=== PATIENT | male | born 1990 | race Caucasian/White ===

== ENCOUNTER 2016-10-24 14:38 | Emergency (ER) | payer SELFPAY ==
[~2016-10-24] VITALS: Ht 185.4 cm; Wt 90.7 kg
[~2016-10-24 14:38] MED LIST: ACHD5005 PO; CEPH500C PO; CLIN300C3 PO; NAPR-243 PO
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
[2016-10-24] MEDS ORDERED: Flexeril (16:34)
[2016-10-24] MEDS ORDERED: IBUP-1773 PO (16:34)
[2016-10-24 16:38] VITALS: BP 159/101
--- OUTSIDE RECORDS SUMMARY | 2016-10-28 07:45 | XMS REPORT ---
Author Author BELINDA NEVAREZ Organization [employer] Address Unknown Phone Unavailable Care Team Providers Care Tool Filer Name Role Phone BELINDA NEVAREZ CP Unavailable Allergies, Adverse Reactions, Alerts Substance Reaction Event Type Penicillin V Potassium hives Drug Allergy Problems Problem Type Condition Code Onset Dates Condition Status Assessment Allergic rhinitis J30.9 Active Problem Unspecified disorder of skin and subcutaneous tissue 709.9 Active Assessment Hypertension I10 Active Problem Allergic rhinitis J30.9 Active Problem Other, multiple, and unspecified sites, insect bite, nonvenomous, infected 919.5 Active Problem Hypertension I10 Active Problem Encounter for long-term (current) use of other medications V58.69 Active Problem Enlargement of lymph nodes 785.6 Active Problem Periapical abscess without sinus 522.5 Active Problem Pain in joint, shoulder region 719.41 Active Medications Medication Code System Code Instructions Start Date End Date Status Dosage BusPIRone HCl [facility] [address]-97 10 MG Orally Twice a day July 16, 2015 1 tablet Cetirizine HCl [facility] [address]-01 10 MG Orally Once a day August 13, 2015 November 11, 2015 1 tablet as needed Lisinopril [facility] [address]-88 5 MG Orally Once a day August 13, 2015 1 tablet Procedures Procedure Coding System Code Date Office Visit, Est Pt., Level 3 CPT-4 45704 August 13, 2015 Vital Signs Date/Time: August 13, 2015 Temperature 99.0 F Weight 197.8 lbs Height 71 in BMI 27.58 Index Blood Pressure Diastolic 100 mmHg Blood Pressure Systolic 140 mmHg Cardiac Monitoring Heart Rate 64 bpm Results No Known Results Summary Purpose [employer] Submission
--- OUTSIDE RECORDS SUMMARY | 2016-10-28 07:45 | XMS REPORT ---
Author Author ESDRAS CAMEJO Organization [employer] Address Unknown Phone Unavailable Care Team Providers Care Orthotic/Prosthetic Clinician Name Role Phone ESDRAS CAMEJO CP Unavailable Allergies, Adverse Reactions, Alerts Substance Reaction Event Type Penicillin V Potassium Info Not Available Drug Allergy Problems Problem Type Condition Code Onset Dates Condition Status Problem Periapical abscess without sinus 522.5 Active Problem Pain in joint, shoulder region 719.41 Active Problem Other, multiple, and unspecified sites, insect bite, nonvenomous, infected 919.5 Active Problem Unspecified disorder of skin and subcutaneous tissue 709.9 Active Assessment Dental examination V72.2 Active Problem Encounter for long-term (current) use of other medications V58.69 Active Problem Enlargement of lymph nodes 785.6 Active Medications No Known Medications Procedures Procedure Coding System Code Date AMALGAM-FOUR/MORE SURF PRIM/PERM CPT-4 D2161 Jan 10, 2015 Vital Signs Date/Time: Jan 10, 2015 Blood Pressure Diastolic 87 mmHg Blood Pressure Systolic 132 mmHg Results No Known Results Summary Purpose [employer] Submission
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
== END 2016-10-24 16:38 | disposition home or self-care (01) ==
LOC: EDUNIT# 14:38 → ER 14:41
DX: S23.9XXA Sprain of unspecified parts of thorax, initial encounter (principal); F32.9 Major depressive disorder, single episode, unspecified; F41.9 Anxiety disorder, unspecified; Z87.891 Personal history of nicotine dependence; W01.0XXA Fall on same level from slipping, tripping and stumbling without subsequent striking against object, initial encounter; Y92.007 Garden or yard of unspecified non-institutional (private) residence as the place of occurrence of the external cause
CPT/HCPCS: 72128; 99281

== ENCOUNTER 2018-04-05 14:58 | Emergency (ER) | payer MEDICAID, OTHER ==
[~2018-04-05] VITALS: Ht 172.7 cm; Wt 90.7 kg
[~2018-04-05 14:58] MED LIST changes: +Flexeril; +IBUP-1773 PO
[2018-04-05] MEDS ORDERED: NS IV 1000 ML 1,000 ML IV ONE (15:14)
[2018-04-05] MEDS ORDERED: LORazepam INJ 2 MG/ML (ATIVAN) VIAL IVP PRN (15:15)
[2018-04-05 15:20] LABS: BASOPHILS % (AUTO) 0 % (0-10); EOSINOPHILS % (AUTO) 0 % (0-10); HEMATOCRIT 44 % (40-54); HEMOGLOBIN 15.5 G/DL (13.3-17.7); LYMPHOCYTES # (AUTO) 3.9 X 10^3 (1.0-4.0); LYMPHOCYTES % (AUTO) 38 % (12-44); MEAN CORPUSCULAR HEMOGLOBIN 32 PG (25-34); MEAN CORPUSCULAR HGB CONC 36 G/DL (32-36); MEAN CORPUSCULAR VOLUME 90 FL (80-99); MEAN PLATELET VOLUME 9.4 FL (7.4-10.4); MONOCYTES % (AUTO) 10 % (0-12); NEUTROPHILS # (AUTO) 5.1 X 10^3 (1.8-7.8); NEUTROPHILS % (AUTO) 51 % (42-75); PLATELET COUNT 261 10^3/uL (130-400); RED BLOOD COUNT 4.85 10^6/uL (4.35-5.85); RED CELL DISTRIBUTION WIDTH 13.1 % (10.0-14.5)
[2018-04-05 15:38] LABS: ALANINE AMINOTRANSFERASE 210 U/L (0-55); ALBUMIN 5.2 GM/DL (3.2-4.5); ALKALINE PHOSPHATASE 68 U/L (40-136); BILIRUBIN,TOTAL 0.8 MG/DL (0.1-1.0); BUN/CREATININE RATIO 8; CALCIUM 10.4 MG/DL (8.5-10.1); CARBON DIOXIDE 17 MMOL/L (21-32); CHLORIDE 101 MMOL/L (98-107); CREATININE SERUM 1.15 MG/DL (0.60-1.30); GFR ESTIMATED > 60; GLUCOSE 105 MG/DL (70-105); POTASSIUM 3.1 MMOL/L (3.6-5.0); SODIUM 138 MMOL/L (135-145); TOTAL PROTEIN 8.1 GM/DL (6.4-8.2)
[2018-04-05] MEDS ORDERED: FAMOTIDINE 20MG/2ML IV (PEPCID) IV STA (15:59)
[2018-04-05] MEDS ORDERED: ANTACID SUSP 30 ML UDC (MYLANTA) PO ONE (16:00)
[2018-04-05] MEDS ORDERED: LIDOCAINE 2% VISCOUS 15 ML UDC PO ONE (16:00)
--- NOTE | 2018-04-05 17:03 | ED General ---
General Chief Complaint: Substance Abuse Stated Complaint: STROKE Nursing Triage Note: pt experimented with Methamphetamine last night while drinking. Pt states this is the first time. pt states that he started not feeling well et SOB about 2 couple hours ago et while at the store he got really dizzy, had muscle spasms et contractions, et then he told his fiance to go to the hospital Nursing Sepsis Screen: No Definite Risk Source of Information: Patient Exam Limitations: No Limitations History of Present Illness Date Seen by Provider: Apr 05, 2018 Time Seen by Provider: 15:09 Initial Comments Here by POV with report of concerns of stroke. Patient was rapidly breathing and had cramping in his hands and perioral anesthesia. States she was hyperventilating. Reports this happened previously 1 time after methamphetamine experimentation. Admits to using methamphetamine last night. States he does not use chronically and is very concerned about this and it got him nervous. Denies nausea or vomiting. Able to move all extremities otherwise. Timing/Duration: 1-3 Hours Severity: Moderate, Severe Modifying Factors: improves with Rest Associated Systoms: No Chest Pain, No Cough, No Fever/Chills, No Nausea/ Vomiting; Shortness of Air; No Weakness Allergies and Home Medications Allergies Coded Allergies: Penicillins (Verified Allergy, 03/10/12) Home Medications Ibuprofen 600 Mg Tablet, 600 MG PO Q6H PRN for PAIN Prescribed by: CHUCK THOMPSON on 10/24/16 1634 [Flexeril] , 10 MG twice a day Prescribed by: CHUCK THOMPSON on 10/24/16 1634 Patient Home Medication List Home Medication List Reviewed: Yes Review of Systems Review of Systems Constitutional: see HPI; No chills, No fever EENTM: see HPI; No blurred vision Respiratory: No cough; short of breath, other (hyperventilation) Cardiovascular: No chest pain; palpitations Gastrointestinal: No abdominal pain, No nausea, No vomiting Genitourinary: no symptoms reported Musculoskeletal: muscle pain, muscle stiffness; No neck pain Skin: no symptoms reported Psychiatric/Neurological: See HPI, Anxiety, Emotional Problems All Other Systems Reviewed Negative Unless Noted: Yes Past Psimopg-Gnifef-Esbjzi Hx Past Med/Social Hx: Reviewed Nursing Past Med/Soc Hx Patient Social History Alcohol Use: Regular Use Alcohol Beverage of Choice: Beer Recreational Drug Use: Yes Drug of Choice: methamphetamine Recent Foreign Travel: No Contact w/Someone Who Travel: No Recent Infectious Disease Expo: No Recent Hopitalizations: No Physical Abuse: No Sexual Abuse: No Mistreated: No Fear: No Seasonal Allergies Seasonal Allergies: No Past Medical History Surgeries: No Respiratory: No Cardiac: Yes Hypertension Neurological: No Reproductive Disorders: No Sexually Transmitted Disease: No Genitourinary: No Gastrointestinal: No Musculoskeletal: No Endocrine: No HEENT: No Cancer: No Psychosocial: Yes Anxiety Integumentary: No Blood Disorders: No Family Medical History Reviewed Nursing Family Hx Physical Exam Vital Signs Vital Signs - First Documented 04/05/18 15:00 Temp 98.8 Pulse 120 Resp 26 B/P (MAP) 158/123 (135) Pulse Ox 100 O2 Delivery Room Air Capillary Refill : Less Than 3 Seconds Height, Weight, BMI Height: 5'8.00" Weight: 200lbs. oz. 90.512480iz; 26.44 BMI Method:Estimated General Appearance: WD/WN, Anxious HEENT: PERRL/EOMI, Pharynx Normal Neck: Non Tender, Supple Respiratory: Lungs Clear, Normal Breath Sounds Cardiovascular: No Murmur, Tachycardia Gastrointestinal: No Organomegaly, No Pulsatile Mass, Non Tender, Soft Back: Normal Inspection, No CVA Tenderness, No Vertebral Tenderness Extremity: No Inflammation; Other (hand cramping with carpopedal spasms) Neurologic/Psychiatric: Alert, Oriented x3 Skin: Normal Color, Warm/Dry Progress/Results/Core Measures Suspected Sepsis Recent Fever Within 48 Hours: No Infection Criteria Present: None New/Unexplained Altered Menta: No Sepsis Screen: No Definite Risk SIRS Temperature:98.8 Pulse: 120 Respiratory Rate: 26 Laboratory Tests 04/05/18 15:13: White Blood Count 10.0 Blood Pressure 158 /123 Mean: 135 Laboratory Tests 04/05/18 15:13: Creatinine 1.15, Platelet Count 261, Total Bilirubin 0.8 Results/Orders Lab Results Laboratory Tests Test 04/05/18 15:13 Range/Units White Blood Count 10.0 4.3-11.0 10^3/uL Red Blood Count 4.85 4.35-5.85 10^6/uL Hemoglobin 15.5 13.3-17.7 G/DL Hematocrit 44 40-54 % Mean Corpuscular Volume 90 80-99 FL Mean Corpuscular Hemoglobin 32 25-34 PG Mean Corpuscular Hemoglobin Concent 36 32-36 G/DL Red Cell Distribution Width 13.1 10.0-14.5 % Platelet Count 261 130-400 10^3/uL Mean Platelet Volume 9.4 7.4-10.4 FL Neutrophils (%) (Auto) 51 42-75 % Lymphocytes (%) (Auto) 38 12-44 % Monocytes (%) (Auto) 10 0-12 % Eosinophils (%) (Auto) 0 0-10 % Basophils (%) (Auto) 0 0-10 % Neutrophils # (Auto) 5.1 1.8-7.8 X 10^3 Lymphocytes # (Auto) 3.9 1.0-4.0 X 10^3 Monocytes # (Auto) 1.0 0.0-1.0 X 10^3 Eosinophils # (Auto) 0.0 0.0-0.3 10^3/uL Basophils # (Auto) 0.0 0.0-0.1 10^3/uL Sodium Level 138 135-145 MMOL/L Potassium Level 3.1 L 3.6-5.0 MMOL/L Chloride Level 101 98-107 MMOL/L Carbon Dioxide Level 17 L 21-32 MMOL/L Anion Gap 20 H 5-14 MMOL/L Blood Urea Nitrogen 9 7-18 MG/DL Creatinine 1.15 0.60-1.30 MG/DL Estimat Glomerular Filtration Rate > 60 BUN/Creatinine Ratio 8 Glucose Level 105 70-105 MG/DL Calcium Level 10.4 H 8.5-10.1 MG/DL Corrected Calcium 8.5-10.1 MG/DL Total Bilirubin 0.8 0.1-1.0 MG/DL Aspartate Amino Transf (AST/SGOT) 97 H 5-34 U/L Alanine Aminotransferase (ALT/SGPT) 210 H 0-55 U/L Alkaline Phosphatase 68 40-136 U/L Total Protein 8.1 6.4-8.2 GM/DL Albumin 5.2 H 3.2-4.5 GM/DL My Orders Orders - MANUELA ALLEN MD Cbc With Automated Diff (04/05/18 15:14) Comprehensive Metabolic Panel (04/05/18 15:14) Saline Lock/Iv-Start (04/05/18 15:14) Ns Iv 1000 Ml (Sodium Chloride 0.9%) (04/05/18 15:14) Lorazepam Injection (Ativan Injection) (04/05/18 15:15) Ekg Tracing (04/05/18 15:14) Lidocaine 2% Viscous 15 Ml (Xylocaine Vi (04/05/18 16:00) Antacid Suspension (Mylanta Suspension (04/05/18 16:00) Famotidine Injection (Pepcid Injection) (04/05/18 15:59) Medications Given in ED Current Medications Medications Dose Ordered Sig/Desmond Route Start Time Stop Time Status Last Admin Dose Admin Al Hydrox/Mg Hydrox/Simethicone 30 ml ONCE ONCE PO 04/05/18 16:00 04/05/18 16:01 DC 04/05/18 16:07 30 ML Lidocaine HCl 15 ml ONCE ONCE PO 04/05/18 16:00 04/05/18 16:01 DC 04/05/18 16:07 15 ML Lorazepam 1 mg ONCE PRN IVP 04/05/18 15:15 04/05/18 15:38 1 MG Sodium Chloride 1,000 ml @ 0 mls/hr Q0M ONCE IV 04/05/18 15:14 04/05/18 15:16 DC 04/05/18 15:38 1,000 MLS/HR Vital Signs/I&O 04/05/18 15:00 Temp 98.8 Pulse 120 Resp 26 B/P (MAP) 158/123 (135) Pulse Ox 100 O2 Delivery Room Air Capillary Refill : Less Than 3 Seconds Blood Pressure Mean: 135 Progress Note : Progress Note Seen and evaluated. IV, labs, normal saline 1 L bolus and Ativan 1 mg IV. EKG done. Monitor patient. While in 630: Pepcid 20 mg IV injection ordered. Patient doing much better. 1702. Heart rate now 89 with O2 sat 90 percent on room air. Patient is unable use his phone and doing much better. We did discuss at length avoidance of stimulants including methamphetamine. Discharged home with return precautions. Patient verbalize understanding instructions and agreement with plan. 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 Decision time for Depature: 17:03 Referrals: [facility] (PCP) Primary Care Physician ADRIENNE BLACKMAN (Family) Primary Care Physician Patient Instructions: ALCOHOL AND SUBSTANCE ABUSE, Adverse Drug Reactions, Adult (DC) Add. Discharge Instructions: All discharge instructions reviewed with patient and/or family. Voiced understanding. Avoid stimulants. Drink plenty of fluids. Follow-up with your Dr. in a few days for recheck. Return for worse pain, fever, vomiting, weakness, breathing problems or other concerns as needed. MANUELA ALLEN MD Apr 05, 2018 17:03
[2018-04-05 17:13] VITALS: BP 163/105
== END 2018-04-05 17:12 | disposition home or self-care (01) ==
LOC: EDUNIT# 14:58 → ER 15:06
DX: R20.0 Anesthesia of skin (principal); T43.605A Adverse effect of unspecified psychostimulants, initial encounter; I10 Essential (primary) hypertension; F41.9 Anxiety disorder, unspecified; F15.10 Other stimulant abuse, uncomplicated; Z88.0 Allergy status to penicillin
CPT/HCPCS: 36415; 80053; 85025; 93005

== ENCOUNTER 2018-04-06 04:17 | Emergency (ER) | payer MEDICAID ==
[~2018-04-06] VITALS: Ht 182.9 cm; Wt 102.1 kg
[2018-04-06] MEDS ORDERED: NS IV 1000 ML 1,000 ML IV ONE ×2 (04:36→05:33)
[2018-04-06 04:44] LABS: BASOPHILS % (AUTO) 0 % (0-10); EOSINOPHILS # (AUTO) 0.1 10^3/uL (0.0-0.3); EOSINOPHILS % (AUTO) 1 % (0-10); HEMATOCRIT 43 % (40-54); HEMOGLOBIN 15.4 G/DL (13.3-17.7); LYMPHOCYTES # (AUTO) 3.2 X 10^3 (1.0-4.0); LYMPHOCYTES % (AUTO) 45 % (12-44); MEAN CORPUSCULAR HEMOGLOBIN 32 PG (25-34); MEAN CORPUSCULAR HGB CONC 36 G/DL (32-36); MEAN CORPUSCULAR VOLUME 89 FL (80-99); MONOCYTES # (AUTO) 0.9 X 10^3 (0.0-1.0); MONOCYTES % (AUTO) 12 % (0-12); NEUTROPHILS % (AUTO) 42 % (42-75); PLATELET COUNT 277 10^3/uL (130-400); RED BLOOD COUNT 4.77 10^6/uL (4.35-5.85); RED CELL DISTRIBUTION WIDTH 13.1 % (10.0-14.5); WHITE BLOOD COUNT 7.1 10^3/uL (4.3-11.0)
[2018-04-06 04:56] LABS: PROTHROMBIN TIME PATIENT 13.5 SEC (12.2-14.7)
[2018-04-06 05:04] LABS: ALANINE AMINOTRANSFERASE 191 U/L (0-55); ALBUMIN 4.8 GM/DL (3.2-4.5); ALKALINE PHOSPHATASE 61 U/L (40-136); BUN/CREATININE RATIO 7; CARBON DIOXIDE 17 MMOL/L (21-32); CHLORIDE 107 MMOL/L (98-107); CREATINE KINASE 953 U/L (30-200); CREATININE SERUM 1.16 MG/DL (0.60-1.30); GFR ESTIMATED > 60; GLUCOSE 110 MG/DL (70-105); MAGNESIUM 1.9 MG/DL (1.8-2.4); POTASSIUM 3.4 MMOL/L (3.6-5.0); SODIUM 140 MMOL/L (135-145); TOTAL PROTEIN 7.6 GM/DL (6.4-8.2)
[2018-04-06 05:11] LABS: MYOGLOBIN SERUM 97.6 NG/ML (10.0-92.0)
[2018-04-06] MEDS ORDERED: LACTATED RINGERS 1,000 ML IV ONE (05:33)
--- NOTE | 2018-04-06 05:46 | ED Chest Pain ---
General Chief Complaint: Chest Pain Stated Complaint: POSSIBLE ALLERGIC REACTION Nursing Triage Note: Pt took a pill at [facility] Thursday that was supposed to be a OTC- dietary pill. Yesterday morning he started to have dizziness and chest pain that radiates down left arm and right leg. Pt stated he was seen yesterday for this issue and hyperventilating. Pt thought yesterday that he was having a heart attack or a stroke. Pain is a dull pain. Nursing Sepsis Screen: No Definite Risk Source: patient, old records Exam Limitations: no limitations (JACOB LEWIS MD) History of Present Illness Date Seen by Provider: Apr 06, 2018 Time Seen by Provider: 04:25 Initial Comments Patient presents to the emergency room complaining of chest discomfort, generalized myalgia, and shortness of air. He is noted to be tachycardic. He admits to using methamphetamines at a [facility] 2 days ago. He was seen yesterday by Dr. Valerio. See his note for details on that visit. He denies any further use of drugs or alcohol since 2 nights ago. Patient appears dry on exam. (JACOB LEWIS MD) Allergies and Home Medications Allergies Coded Allergies: Penicillins (Verified Allergy, 03/10/12) Home Medications Ibuprofen 600 Mg Tablet, 600 MG PO Q6H PRN for PAIN Prescribed by: CHUCK THOMPSON on 10/24/16 1634 [Flexeril] , 10 MG twice a day Prescribed by: CHUCK THOMPSON on 10/24/16 1634 Patient Home Medication List Home Medication List Reviewed: Yes (JACOB LEWIS MD) Review of Systems Review of Systems Constitutional: see HPI EENTM: See HPI Respiratory: See HPI Cardiovascular: See HPI Gastrointestinal: No Symptoms Reported Genitourinary: No Symptoms Reported Musculoskeletal: see HPI Skin: no symptoms reported Psychiatric/Neurological: No Symptoms Reported Endocrine: No Symptoms Reported Hematologic/Lymphatic: No Symptoms Reported (JACOB LEWIS MD) Past Coemppv-Yvzvne-Wrkjsi Hx Past Med/Social Hx: Reviewed Nursing Past Med/Soc Hx (JACOB LEWIS MD) Patient Social History Alcohol Use: Rarely Uses Number of Drinks Today: 3 Alcohol Beverage of Choice: Beer Recreational Drug Use: No (took pill at [facility] 04/04/18 that was supposed to be dietary pill otc) Drug of Choice: methamphetamine Smoking Status: Former Smoker Type Used: Cigarettes Former Smoker, Quit: Mar 20, 2017 Recent Foreign Travel: No Contact w/Someone Who Travel: No Recent Infectious Disease Expo: No Recent Hopitalizations: No Physical Abuse: No Sexual Abuse: No Mistreated: No Fear: No (JACOB LEWIS MD) Seasonal Allergies Seasonal Allergies: No (JACOB LEWIS MD) Past Medical History Surgeries: No Respiratory: No Cardiac: Yes Hypertension Neurological: No Reproductive Disorders: No Sexually Transmitted Disease: No Genitourinary: No Gastrointestinal: No Musculoskeletal: No Endocrine: No HEENT: No Cancer: No Psychosocial: Yes Anxiety Integumentary: No Blood Disorders: No (JACOB LEWIS MD) Physical Exam Vital Signs Vital Signs - First Documented (DAMI IBRAHIM) Vital Signs Capillary Refill : Less Than 3 Seconds (JACOB LEWIS MD) Height, Weight, BMI Height: 6'0" Weight: 225lbs. oz. 102.106896eb; 26.44 BMI Method:Stated General Appearance: WD/WN, Anxious, Mild Distress HEENT: PERRL/EOMI, Normal ENT Inspection, Other (Oropharynx dry) Neck: Normal Inspection Respiratory: Lungs Clear, Normal Breath Sounds, No Accessory Muscle Use, No Respiratory Distress Cardiovascular: No Edema, No Murmur, Tachycardia Gastrointestinal: Non Tender, Soft Extremity: Normal Inspection, No Pedal Edema Neurologic/Psychiatric: Alert, Oriented x3, No Motor/Sensory Deficits, manufacturing analyst II- XII Norm as Tested, Other (Anxious) Skin: Normal Color, Warm/Dry (JACOB LEWIS MD) Progress/Results/Core Measures Results/Orders Lab Results Laboratory Tests Test 04/06/18 04:35 Range/Units White Blood Count 7.1 4.3-11.0 10^3/uL Red Blood Count 4.77 4.35-5.85 10^6/uL Hemoglobin 15.4 13.3-17.7 G/DL Hematocrit 43 40-54 % Mean Corpuscular Volume 89 80-99 FL Mean Corpuscular Hemoglobin 32 25-34 PG Mean Corpuscular Hemoglobin Concent 36 32-36 G/DL Red Cell Distribution Width 13.1 10.0-14.5 % Platelet Count 277 130-400 10^3/uL Mean Platelet Volume 9.0 7.4-10.4 FL Neutrophils (%) (Auto) 42 42-75 % Lymphocytes (%) (Auto) 45 H 12-44 % Monocytes (%) (Auto) 12 0-12 % Eosinophils (%) (Auto) 1 0-10 % Basophils (%) (Auto) 0 0-10 % Neutrophils # (Auto) 3.0 1.8-7.8 X 10^3 Lymphocytes # (Auto) 3.2 1.0-4.0 X 10^3 Monocytes # (Auto) 0.9 0.0-1.0 X 10^3 Eosinophils # (Auto) 0.1 0.0-0.3 10^3/uL Basophils # (Auto) 0.0 0.0-0.1 10^3/uL Prothrombin Time 13.5 12.2-14.7 SEC INR Comment 1.0 0.8-1.4 Activated Partial Thromboplast Time 28 24-35 SEC Sodium Level 140 135-145 MMOL/L Potassium Level 3.4 L 3.6-5.0 MMOL/L Chloride Level 107 98-107 MMOL/L Carbon Dioxide Level 17 L 21-32 MMOL/L Anion Gap 16 H 5-14 MMOL/L Blood Urea Nitrogen 8 7-18 MG/DL Creatinine 1.16 0.60-1.30 MG/DL Estimat Glomerular Filtration Rate > 60 BUN/Creatinine Ratio 7 Glucose Level 110 H 70-105 MG/DL Calcium Level 10.0 8.5-10.1 MG/DL Corrected Calcium 8.5-10.1 MG/DL Magnesium Level 1.9 1.8-2.4 MG/DL Total Bilirubin 1.0 0.1-1.0 MG/DL Aspartate Amino Transf (AST/SGOT) 97 H 5-34 U/L Alanine Aminotransferase (ALT/SGPT) 191 H 0-55 U/L Alkaline Phosphatase 61 40-136 U/L Total Creatine Kinase 953 H 30-200 U/L Myoglobin 97.6 H 10.0-92.0 NG/ML Troponin I < 0.30 <0.30 NG/ML Total Protein 7.6 6.4-8.2 GM/DL Albumin 4.8 H 3.2-4.5 GM/DL TSH [place] Testing 2.57 0.35-4.94 UIU/ML (DAMI IBRAHIM) Medications Given in ED Current Medications Medications Dose Ordered Sig/Desmond Route Start Time Stop Time Status Last Admin Dose Admin Lactated Ringer's 1,000 ml @ 0 mls/hr Q0M ONCE IV 04/06/18 05:33 04/06/18 05:34 DC 04/06/18 06:13 1,000 MLS/HR Sodium Chloride 1,000 ml @ 0 mls/hr Q0M ONCE IV 04/06/18 04:36 04/06/18 04:40 DC 04/06/18 05:07 1,000 MLS/HR Sodium Chloride 1,000 ml @ 0 mls/hr Q0M ONCE IV 04/06/18 05:33 04/06/18 05:34 DC 04/06/18 05:43 1,000 MLS/HR (DAMI IBRAHIM) Vital Signs/I&O 04/06/18 04/06/18 04/06/18 04:25 04:25 04:25 Temp 97.3 Pulse 120 Resp 22 B/P (MAP) 166/117 (133) Pulse Ox 99 99 O2 Delivery Room Air Room Air Room Air (DAMI IBRAHIM) Blood Pressure Mean: 133 Progress Progress Note : Progress Note Patient was hydrated with IV fluids. Labs were obtained. He was found to have rhabdomyolysis, likely methamphetamine induced. An additional 2 L were administered for a total fluid bolus of [address] Nobles with [facility] to ensure the patient could get follow-up for repeat labs. He was also given a prescription for lab work. Patient was dismissed home in improved condition. Tachycardia resolved. (JACOB LEWIS MD) Initial ECG Impression Date: Apr 06, 2018 Initial ECG Impression Time: 04:38 Initial ECG Rate: 99 Initial ECG Rhythm: Normal Sinus Comment Normal sinus rhythm. No ST elevation or depression. No abnormal intervals or axis deviation. (JACOB LEWIS MD) Diagnostic Imaging Diagonstic Imaging: Xray Plain Films/CT/US/NM/MRI: chest Comments [facility], [place] NAME: NAYA RENTERIA [facility] REC#: [id number] PT STATUS: REG ER : 1990 PHYSICIAN: JACOB LEWIS MD ADMIT DATE: 04/06/18/ER Draft Date of Exam:04/06/18 CHEST 1 VIEW, AP/PA ONLY Indication: Allergic reaction. Findings: The lungs are clear. The heart size and vascularity are normal. There is no effusion or pneumothorax. Impression: No acute-appearing abnormality. Dictated on workstation # [id number] Dict: 04/06/18817 Trans: 04/06/18820 CVB [id number] Interpreted by: JOSE MONTEMAYOR Electronically signed by: Reviewed: Reviewed by Me (DAMI IBRAHIM) Departure Impression Primary Impression: Rhabdomyolysis Qualified Codes: M62.82 - Rhabdomyolysis Additional Impressions: Chest pain Qualified Codes: R07.9 - Chest pain, unspecified Methamphetamine abuse Disposition: HOME, SELF-CARE Condition: Improved Departure-Patient Inst. Decision time for Depature: 05:46 (JACOB LEWIS MD) Referrals: [facility] [place] Primary Care Physician ADRIENNE BLACKMAN (Family) Primary Care Physician Patient Instructions: Rhabdomyolysis Add. Discharge Instructions: Drink plenty of clear liquids. Follow-up at [facility] as soon as possible. Obtain repeat labs in the clinic as ordered on the prescription. Return to care if you have worsening symptoms. Avoid all psychogenic substances such as methamphetamines or marijuana. Consider seeking assistance at the drug and alcohol treatment center at [facility]. All discharge instructions reviewed with patient and/or family. Voiced understanding. JACOB LEWIS MD Apr 06, 2018 05:46 DAMI IBRAHIM Apr 06, 2018 08:51
--- NOTE | 2018-04-06 08:21 | Diagnostic Imaging Report ---
Indication: Allergic reaction. Findings: The lungs are clear. The heart size and vascularity are normal. There is no effusion or pneumothorax. Impression: No acute-appearing abnormality. Dictated by: Dictated on workstation # [id number]
[2018-04-06 08:59] VITALS: BP 161/112
== END 2018-04-06 08:59 | disposition home or self-care (01) ==
LOC: EDUNIT# 04:17 → ER 04:18
DX: M62.82 Rhabdomyolysis (principal); R07.89 Other chest pain; F15.10 Other stimulant abuse, uncomplicated; I10 Essential (primary) hypertension; F41.9 Anxiety disorder, unspecified; Z87.891 Personal history of nicotine dependence; Z88.0 Allergy status to penicillin
CPT/HCPCS: 36415; 71045; 80053; 82550; 83735; 83874; 84443; 84484; 85025; 85610; 85730; 93005; 93041

== ENCOUNTER 2018-08-25 23:40 | Emergency (ER) | payer SELFPAY ==
[~2018-08-25] VITALS: Ht 182.9 cm; Wt 104.3 kg
[2018-08-26] MEDS ORDERED: LISI-556 (00:02)
[2018-08-26] MEDS ORDERED: BENZ100C18 PO (00:42)
[2018-08-26] MEDS ORDERED: DOXY100C42 PO (00:42)
[2018-08-26] MEDS ORDERED: GUAI1TBM19 PO (00:42)
[2018-08-26] MEDS ORDERED: METH4TAB PO (00:42)
--- NOTE | 2018-08-26 00:42 | ED Cough/URI ---
General Chief Complaint: General Problems/Pain Stated Complaint: SORE THROAT,VOMITING,FEVER,CONGESTION,FREEZING,NUM Nursing Triage Note: INTERMITTANT FEVER/CHILLS, SORE THROAT, CHEST CONGESTION, VOMITTING X4-5 DAYS. Sepsis Screen: No Definite Risk Source: patient History of Present Illness Date Seen by Provider: August 25, 2018 Time Seen by Provider: 23:55 Initial Comments PT ARRIVES VIA POV FROM HOME PT STATES HAS HAD "FLU LIKE SYMPTOMS FOR A COUPLE OF WEEKS" STATES HE HAD A SORE THROAT FOR 4-5 DAYS, BUT IS GRADUALLY GETTING BETTER THE LAST 3-4 DAYS HAS COUGH AND CONGESTION AND COUGHS UNTIL HE VOMITS, AND HIS HANDS AND LEGS WILL GET TINGLY WHEN COUGHS/GAGS/VOMITS C/O CHILLS, BUT NO KNOWN FEVER NO CHEST PAIN NO SHORTNESS OF BREATH HAS NOT TAKEN ANYTHING FOR SYMPTOMS HAS NOT SOUGHT CARE UNTIL TONIGHT SYMPTOMS NO DIFFERENT TONIGHT NO KNOWN SICK CONTACTS PT DRINKS A PINT OF HARD LIQUOR A DAY, RECENTLY QUIT SMOKING 1 PPD, AND SMOKES METH AND THC PCP: LASHAWN-ERVIN, JOVANNI BLACKMAN Allergies and Home Medications Allergies Coded Allergies: Penicillins (Verified Allergy, 03/10/12) Home Medications Benzonatate 100 Mg Capsule, 1-2 TAB PO TID Prescribed by: MIRELA ALCALA on 08/26/1841 Doxycycline Monohydrate 100 Mg Capsule, 100 MG PO BID Prescribed by: MIRELA ALCALA on 08/26/1841 Guaifenesin/Dextromethorphan 1 Each Tbmp.12hr, 1 EACH PO BID Prescribed by: MIRELA ALCALA on 08/26/1841 Methylprednisolone 4 Mg Tab.ds.pk, 4 MG PO UD Prescribed by: MIRELA ALCALA on 08/26/1841 Patient Home Medication List Home Medication List Reviewed: Yes Review of Systems Review of Systems Constitutional: chills EENTM: see HPI, nose congestion, throat pain; No ear pain Respiratory: see HPI, cough, phlegm; No short of breath, No wheezing Cardiovascular: no symptoms reported Gastrointestinal: see HPI, vomiting Genitourinary: no symptoms reported Musculoskeletal: no symptoms reported Skin: no symptoms reported Psychiatric/Neurological: No Symptoms Reported Hematologic/Lymphatic: No Symptoms Reported Immunological/Allergic: no symptoms reported Past Wdylmrz-Mthnrw-Ltmrpl Hx Patient Social History Alcohol Use: Regular Use (DRINKS AT LEAST A PINT OF HARD LIQUOR A DAY) Number of Drinks Today: AA Alcohol Beverage of Choice: Beer, Cheap Liquor Recreational Drug Use: Yes (SMOKES METH AND THC; ALSO HX OF OPIATES AND BENZO' S USE/ABUSE) Drug of Choice: SMOKES METH AND THC, ALSO HX OF OPIATES AND BENZO'S USE/ABUSE Smoking Status: Former Smoker (1 PPD) Type Used: Cigarettes Former Smoker, Quit: Mar 20, 2017 2nd Hand Smoke Exposure: No Recent Foreign Travel: No Contact w/Someone Who Travel: No Recent Infectious Disease Expo: No Recent Hopitalizations: No Immunizations Up To Date Tetanus Booster (TDap): Unknown Seasonal Allergies Seasonal Allergies: No Past Medical History Surgeries: No Respiratory: No Cardiac: Yes Hypertension Neurological: No Reproductive Disorders: No Sexually Transmitted Disease: No Genitourinary: No Gastrointestinal: No Musculoskeletal: No (MILD RHABDOMYOLYSIS DUE TO METHAMPHETAMINE USE) Endocrine: No HEENT: No Cancer: No Psychosocial: Yes (POLYSUBSTANCE ABUSE) Anxiety Integumentary: No Blood Disorders: No Physical Exam Vital Signs - First Documented 08/25/18 23:55 Temp 97.6 Pulse 111 Resp 18 B/P (MAP) 140/105 (117) Pulse Ox 98 O2 Delivery Room Air Capillary Refill : Less Than 3 Seconds Height: 6'0" Weight: 230lbs. oz. 104.272274uo; 26.44 BMI Method:Stated General Appearance: WD/WN, no apparent distress, other (DRAMATIC, CONSTANT MOVMENTS, FREQUENT HARSH FORCED COUGH AND FORCED GAGGING. ) HEENT: PERRL/EOMI, other (NASAL CONGESTION AND CLEAR POST NASAL DRAINAGE, MILD PHARYNGEAL ERYTHEMA) Neck: normal inspection Respiratory: normal breath sounds, no respiratory distress, no accessory muscle use Cardiovascular: regular rate, rhythm, no edema, no JVD, no murmur Gastrointestinal: non tender, soft Extremities: normal inspection, no pedal edema Neurologic/Psychiatric: car sander II-XII nml as tested, no motor/sensory deficits, alert, oriented x 3 Skin: normal color, warm/dry Progress/Results/Core Measures Suspected Sepsis Recent Fever Within 48 Hours: No Infection Criteria Present: None New/Unexplained Altered Menta: No Sepsis Screen: No Definite Risk SIRS Temperature:97.6 Pulse: 111 Respiratory Rate: 18 Blood Pressure 140 /105 Mean: 117 Results/Orders Lab Results Laboratory Tests Test 08/26/18 00:08 Range/Units Group A Streptococcus Screen NEGATIVE NEGATIVE My Orders Orders - CARIMIRELA Hari BEVERLY Rapid Strep A Screen (08/25/18 23:55) Chest Pa/Lat (2 View) (08/26/18 00:16) Rx-Doxycycline Tablet (Rx-Vibramycin Tab (08/26/18 00:46) Benzonatate Capsule (Tessalon Perles) (08/26/18 01:00) Vital Signs/I&O 08/25/18 08/26/18 23:55 00:50 Temp 97.6 97.5 Pulse 111 94 Resp 18 18 B/P (MAP) 140/105 (117) 138/97 (111) Pulse Ox 98 99 O2 Delivery Room Air Room Air Capillary Refill : Less Than 3 Seconds Blood Pressure Mean: 117 Progress Note : Progress Note UNEVENTFUL ER STAY Diagnostic Imaging Comments CXR--NO ACUTE PROCESS, PENDING RADIOLOGIST REVIEW Reviewed: Reviewed by Me Departure Impression Primary Impression: Acute bronchitis Additional Impression: Upper respiratory infection Disposition: HOME, SELF-CARE Condition: Stable Departure-Patient Inst. Referrals: [facility]/ (PCP) Primary Care Physician ADRIENNE BLACKMAN (Family) Primary Care Physician Patient Instructions: Acute Bronchitis, Adult (DC), Bacterial Upper Respiratory Infection, Adult Add. Discharge Instructions: LOTS OF CLEAR LIQUIDS TYLENOL AND MOTRIN NEEDED FOR PAIN OR FEVER FOLLOW UP WITH YOUR DR IN 3-4 DAYS IF NO BETTER All discharge instructions reviewed with patient and/or family. Voiced understanding. Scripts Methylprednisolone (Medrol) 4 Mg Tab.ds.pk 4 MG PO UD, #1 PKG Prov: CARIMIRELA Hari BEVERLY 08/26/18 Benzonatate (TESSALON PERLES) 100 Mg Capsule 1-2 TAB PO TID for Cough, #30 CAP Prov: CARIMIRELA K DO 08/26/18 Guaifenesin/Dextromethorphan (Mucinex Dm ER 1,200-60 mg Tab) 1 Each Tbmp.12hr 1 EACH PO BID for 10 Days, #20 EA Prov: MYKE ALCALAA K 08/26/18 Doxycycline Monohydrate (Doxycycline Monohydrate) 100 Mg Capsule 100 MG PO BID, #20 CAP Prov: MYKE ALCALAA K 08/26/18 CARIMIRELA DO August 26, 2018 00:42
[2018-08-26] MEDS ORDERED: RX-DOXYCYCLINE 100 MG (VIBRAMYCIN) TAB PPK#2 PO STA (00:46)
[2018-08-26 00:50] VITALS: BP 138/97
[2018-08-26] MEDS ORDERED: BENZONATATE 100 MG (TESSALON) CAPSULE PO SCH (01:00)
--- NOTE | 2018-08-26 05:33 | Diagnostic Imaging Report ---
INDICATION: Fever and chills. Sore throat. Chest congestion. COMPARISON: 04/06/2018 FINDINGS: Frontal and lateral views of the chest demonstrate normal heart size and pulmonary vascularity. The lungs are clear. There are no signs of infiltrate, pleural effusions or pneumothoraces. The visualized osseous structures show no acute abnormalities. IMPRESSION: 1. No acute process. No signs of infiltrates, effusions or pneumothoraces. Dictated by: Dictated on workstation # [id number]
== END 2018-08-26 00:52 | disposition home or self-care (01) ==
LOC: EDUNIT# 23:40 → ER 23:46
DX: J20.9 Acute bronchitis, unspecified (principal); J06.9 Acute upper respiratory infection, unspecified; I10 Essential (primary) hypertension; F41.9 Anxiety disorder, unspecified; F15.10 Other stimulant abuse, uncomplicated; F12.10 Cannabis abuse, uncomplicated; Z88.0 Allergy status to penicillin; Z79.52 Long term (current) use of systemic steroids; Z87.891 Personal history of nicotine dependence
CPT/HCPCS: 71046; 87430